=== PATIENT | female | born 1955 | race Caucasian/White ===

== ENCOUNTER 2021-12-18 09:40 | Day surgery (SDC) | payer OTHER ==
[~2021-12-18] VITALS: Ht 160 cm; Wt 68.4 kg
[2021-12-18] MEDS ORDERED: VITAMIN D5000 UNIT PO (10:22)
[2021-12-18] MEDS ORDERED: SERT100 PO (10:22)
[2021-12-18] MEDS ORDERED: MAGNESIUM OXID500 MG PO (10:23)
--- NOTE | 2021-12-18 12:26 | NUR ---
12/18/21 1226 Bryn Munroe PT RESTING ON RECLINER. PT TRANSFERED WELL TO CHAIR FROM BED. PT STATES PAIN IS 9/10. PT MEDICATED WITH FENTANYL PER DR. JACKSON. PT AWAKE, ALERT. VS WNL. PT DENIES ANY NAUSEA.
== END 2021-12-18 13:13 | disposition home or self-care (01) ==
LOC: ORSCSDS 09:40
PROVIDERS: Orthopaedic Surgery
PROC: 0SBC4ZZ Excision of Right Knee Joint, Percutaneous Endoscopic Approach (ICD-10-PCS; principal; 2021-12-18 11:00)
DX: S83.241A Other tear of medial meniscus, current injury, right knee, initial encounter (principal); S83.281A Other tear of lateral meniscus, current injury, right knee, initial encounter; M94.261 Chondromalacia, right knee; M17.11 Unilateral primary osteoarthritis, right knee; F41.9 Anxiety disorder, unspecified; Z79.899 Other long term (current) drug therapy
CPT/HCPCS: A9270; J0171; J0690; J1100; J2250; J2405; J2704; J2795; J3010; J7120

== ENCOUNTER 2022-02-03 08:45 | Day surgery (SDC) | payer OTHER ==
[~2022-02-03] VITALS: Ht 162.6 cm; Wt 67.3 kg
[~2022-02-03 08:45] MED LIST: MAGNESIUM OXID500 MG PO; SERT100 PO; VITAMIN D5000 UNIT PO
[2022-02-03] MEDS ORDERED: FENO145 (09:38)
--- NOTE | 2022-02-03 11:47 | NUR ---
02/03/22 1147 Jade Ying PT. DENIES ANY PAIN, NAUSEA OR SORETHROAT.
== END 2022-02-03 11:30 | disposition home or self-care (01) ==
LOC: ORSCSDS 08:45
PROVIDERS: Surgery
PROC: 0DBM8ZX Excision of Descending Colon, Via Natural or Artificial Opening Endoscopic, Diagnostic (ICD-10-PCS; principal; 2022-02-03 10:00)
DX: Z12.11 Encounter for screening for malignant neoplasm of colon (principal); K63.5 Polyp of colon; F41.9 Anxiety disorder, unspecified; E78.5 Hyperlipidemia, unspecified; Z79.899 Other long term (current) drug therapy
CPT/HCPCS: 88305; J2405; J2704; J7120

== ENCOUNTER → 2023-02-11 | Outpatient (CLI) | payer OTHER ==
[~2023-02-11] MED LIST changes: +FENO145
[2023-02-11 13:58] LABS: CHOL/HDL RATIO 2.6; Cholesterol 232 mg/dL (50-200); HDL Cholesterol 89 mg/dL (>39); LDL/HDL RATIO 1.5; Low Density Lipoprotein Chol 130 mg/dL (0-110); Triglycerides 65 mg/dL (30-160); Very Low Density Lipoprot Chol 13 mg/dL (6-32)
== END | disposition home or self-care (01) ==
LOC: LAB 09:15 → LAB SHORT 09:15
PROVIDERS: Family Medicine
DX: Z11.59 Encounter for screening for other viral diseases (principal); E78.5 Hyperlipidemia, unspecified
CPT/HCPCS: 80061; 86803

== ENCOUNTER 2025-03-27 08:40 | Day surgery (SDC) | payer OTHER ==
[2025-03-27] VITALS (10 sets, daily range): BP systolic 106–136; BP diastolic 64–85
[~2025-03-27] VITALS: Ht 162 cm; Wt 69.0 kg
[~2025-03-27 08:40] MED LIST changes: +EZET10 PO; +GLUC500 PO
[2025-03-27] MEDS ORDERED: Ropivacaine 0.5% HCl/Pf 123.125 MG,EPINEPHrine HCL 0.25 MG,Ketorolac Tromethamine 15 MG... INFIL SCH (09:20)
[2025-03-27] MEDS ORDERED: Chlorhexidine Mouth Care 15 ML UDC MT SCH (09:20)
[2025-03-27] MEDS ORDERED: Tranexamic Acid 100 ML IV SCH (09:20)
[2025-03-27] MEDS ORDERED: CeFAZolin Sodium 2,000 MG in NS 100 ML IV SCH ×2 (09:20→20:00)
[2025-03-27] MEDS ORDERED: Metoclopramide HCl 5MG / ML 2ML Vial IV PRN ×2 (10:15→11:15)
[2025-03-27] MEDS ORDERED: HYDROmorphone HCl/Pf 1MG SYR IV PRN ×2 (10:15→11:20)
[2025-03-27] MEDS ORDERED: Morphine Sulfate 4 MG/1 ML Injection IV PRN (10:15)
[2025-03-27] MEDS ORDERED: FentaNYL Citrate 50 MCG/ML 2 ML Injection IV PRN ×2 (10:15→10:20)
[2025-03-27] MEDS ORDERED: Ondansetron HCl 2 MG / ML 2ML Vial IV PRN ×2 (10:15→11:20)
[2025-03-27] MEDS ORDERED: ePHEDrine Sulfate 50 MG/ML 1ML Injection IV PRN (10:20)
[2025-03-27] MEDS ORDERED: Magnesium Hydroxide Conc 10 ML UDC PO PRN (11:15)
[2025-03-27] MEDS ORDERED: Metoclopramide HCl 5MG / ML 2ML Vial ONE (11:24)
[2025-03-27] MEDS ORDERED: Ondansetron HCl 2 MG / ML 2ML Vial ONE (11:24)
[2025-03-27] MEDS ORDERED: Magnesium Sulfate 500 MG / ML 2ML Vial ONE (11:30)
[2025-03-27] MEDS ORDERED: Midazolam HCl 1MG / ML 2ML Vial ONE (11:43)
[2025-03-27] MEDS ORDERED: HYDROmorphone HCl/Pf 1MG SYR ONE (11:43)
[2025-03-27] MEDS ORDERED: Ketorolac Tromethamine 15mg Vial IV SCH (12:00)
[2025-03-27] MEDS ORDERED: Phenylephrine HCl 100 MCG/ML-NS 10MLSYR (1MG/10ML) ONE (13:32)
--- NOTE | 2025-03-27 13:53 | NUR ---
PT TO PACU W ANESTHESIA, A&O, VSS ON RA, FOLLOWING COMMANDS DENIES PAIN, DSG CDI. UNABLE TO MOVE LOWER EXTREMITIES S/P BLOCK. SENSATION S/P AT GROIN LEVEL, L1. (+) PEDAL PULSES, STOCKINGS ON.
[2025-03-27] MEDS ORDERED: ASPI81CH PO (16:07)
--- NOTE | 2025-03-27 17:54 | NUR ---
DISCHARGE NOTE PT IS TOLERATING INTAKE, VOIDING WELL. PT IS SLIGHTLY NAUSEOUS BUT REPORTS THIS IS NORMAL FOR HER, HAS MEDICATIONS AT HOME. PT PLANS TO MANAGE AT HOME. PT WORKED W/ PHYSICAL THERAPY, THERAPY RECOMMENDED OUTPATIENT THERAPY. PAIN MANAGED PER EMAR. PT IS AMBULATING SBA FWW AND GB. PT VERBALIZED UNDERSTANDING OF EDUCATION. ESCORTED OUT VIA WC.
[2025-03-28] MEDS ORDERED: Cholecalciferol 1000 Unit Tablet (=25MCG) PO SCH (09:00)
== END 2025-03-27 18:05 | disposition home or self-care (01) ==
LOC: ORSCMMR 08:40 → ORD 10:00 → ORSCMMR 10:00 → SURS 14:11 → ORSCMMR 18:05
PROVIDERS: Orthopaedic Surgery
PROC: 0SRD0JA Replacement of Left Knee Joint with Synthetic Substitute, Uncemented, Open Approach (ICD-10-PCS; principal; 2025-03-27 10:00)
DX: M17.12 Unilateral primary osteoarthritis, left knee (principal); E78.5 Hyperlipidemia, unspecified; F41.9 Anxiety disorder, unspecified; Z79.899 Other long term (current) drug therapy
CPT/HCPCS: 73560-LT; 97110; 97161; 97530; A9270; C1713; C1776; J0166; J0690; J0735; J1171; J1885; J2250; J2371; J2405; J2704; J2765; J2795; J3475; J7120